=== PATIENT | male | born 1965 | race Caucasian/White ===

== ENCOUNTER → 2016-07-01 | Outpatient (CLI) | payer OTHER ==
[2015-06-11 22:52] VITALS: BP 181/90
[2016-07-01 10:56] LABS: T4 (THYROXINE) 9.1 ug/dL (4.7-13.3); TSH (3RD GENERATION) 0.905 uIU/mL (0.358-3.74)
== END ==
LOC: RT 09:59
PROVIDERS: ATTEND Psychiatry & Neurology Neurology
DX: R41.3 Other amnesia (principal)
CPT/HCPCS: 36415; 82607; 82746; 84436; 84443; 84480; 95819

== ENCOUNTER → 2016-08-04 | Outpatient (CLI) | payer OTHER ==
[2015-06-11 22:52] VITALS: BP 181/90
--- NOTE | 2016-08-04 14:45 | VAS ---
HISTORY: Bilateral leg pain and swelling. Study: Bilateral lower extremity venous Doppler Comparison: None. TECHNIQUE: Real-time dynamic grayscale, color flow and complete spectral Doppler ultrasound examina tion of the major deep venous structures were obtained of both lower extremities. FINDINGS: Right lower extremity: Real-time examination shows no evidence of thrombus within the common femora l, superficial femoral, or popliteal veins. There is normal compressibility throughout. Color flow i maging shows normal venous blood flow within the major vessels. Doppler examination shows normal vilma ous waveforms with appropriate respiratory variation and augmentation. Left lower extremity: Real-time examination shows no evidence of thrombus within the common femoral, superficial femoral, or popliteal veins. There is normal compressibility throughout. Color flow zoraida ging shows normal venous blood flow within the major vessels. Doppler examination shows normal venou s waveforms with appropriate respiratory variation and augmentation. IMPRESSION: 1. Normal bilateral lower extremity venous Doppler, without evidence of DVT. Reported By:
== END ==
LOC: RAD 13:38
PROVIDERS: ATTEND Nurse Practitioner Family
DX: M79.604 Pain in right leg (principal); M79.605 Pain in left leg; R60.1 Generalized edema
CPT/HCPCS: 93970

== ENCOUNTER → 2016-08-13 | Outpatient (CLI) | payer OTHER ==
[2015-06-11 22:52] VITALS: BP 181/90
[2016-08-13 11:29] LABS: CREATININE 1.08 mg/dL (0.70-1.30)
--- NOTE | 2016-08-13 13:51 | MRI ---
STUDY: MRI OF THE BRAIN WITHOUT AND WITH GADOLINIUM History: Short-term memory loss. Comparison: Brain MRI dated November 07, 2015. Technique: Multiplanar multi-sequence MRI of the brain was obtained utilizing standard departmental protocol. Sagittal and axial T1, axial T2, FLAIR, diffusion (DWI/ADC) images through the brain were performed. 20 cc of Omniscan was administered without reported complication following acquisition of informed w ritten consent. Post gadolinium axial and coronal whole brain images were performed. Findings: Pre gadolinium brain: The sulci, cisterns, and ventricles are age appropriate. There is no evidence of acute territorial infarction, hemorrhage, mass, mass effect or midline shift. There are no abnorm al intra-axial or extra-axial fluid collections. The major intracranial vascular flow voids are inta ct. The previously noted focus of decreased diffusion and T2 hyperintensity in the left posterior te mporal cortex is no longer visualized on the current exam. Post gadolinium brain: Following the uneventful administration of intravenous gadolinium, there is n o evidence of abnormal brain parenchymal or leptomeningeal enhancement. IMPRESSION: 1. No evidence of acute intracranial abnormality. 2. Interval resolution of previously noted focus of restricted diffusion and T2 hyperintensity in th e posterior left temporal lobe. Reported By:
== END ==
LOC: RAD 11:00
PROVIDERS: ATTEND Psychiatry & Neurology Neurology
DX: R41.3 Other amnesia (principal)
CPT/HCPCS: 36415; 70553; 82565; 84520

== ENCOUNTER → 2016-10-22 | Outpatient (CLI) | payer OTHER ==
[2015-06-11 22:52] VITALS: BP 181/90
--- NOTE | 2016-10-22 14:56 | MRI ---
MRI lumbar spine without contrast Indication: Lower back pain Technique: Multisequence, multiplanar MR images of the lumbar spine were obtained without IV contrast . Comparison: None Findings: Marrow signal and vertebral body heights/alignment are normal. No acute fracture or suspici ous osseous lesion is identified. The conus is normal in signal, terminating at L1. The cauda equina is unremarkable. Visualized paraspinal soft tissues demonstrate no gross, unexpected findings. T11-T12: Mild disc desiccation/narrowed and left paracentral disc bulge results and moderate left lat eral recess narrowing and left foraminal stenosis, only partially visualized. T12-L1, L1-L2: Unremarkable L2-L3: Mild broad-based disk bulge, otherwise unremarkable. L3-L4: Mild broad-based disk bulge and ligamentum hypertrophy results in mild right greater than left foraminal narrowing without significant canal stenosis. L4-L5: Moderate broad-based disc bulge with superimposed central disc protrusion and facet arthropath y results in mild bilateral foraminal as well as lateral recess narrowing, greater on the right. No s ignificant canal stenosis. L5-S1: Moderate broad-based disc bulge with superimposed right paracentral disc protrusion and facet arthropathy results and moderate right lateral recess and mild canal stenosis. Impression: Mild-moderate multilevel degenerative changes of the lower lumbar spine, most significant at L4-L5 an d L5-S1 as detailed above. Reported By:
== END | disposition home or self-care (01) | DRG 552 ==
LOC: RAD 09:53
PROVIDERS: ATTEND Internal Medicine
DX: M54.5 Low back pain (principal); M51.36 Other intervertebral disc degeneration, lumbar region; G62.89 Other specified polyneuropathies
CPT/HCPCS: 72148

== ENCOUNTER 2016-11-18 16:24 | Emergency (ER) | payer OTHER ==
[2016-11-18 16:38] VITALS: BP 173/88; BMI 38.5
[2016-11-18] MEDS ORDERED: VALIUM INJ IM ONE (17:25)
--- NOTE | 2016-11-18 17:25 | DR.GENAD ---
HPI - PCP Primary Care Physician: Silvia Edwards - Complaint/Symptoms Chief Complaint Doctors Comments: Patient has an appointment to see the neurologist in [place] later on this week for his chronic pain syndrome. Chief Complaint:: "hurting all over nerve pain in legs and arms and hands" - Source History Provided: Patient - Mode of Arrival Mode of Arrival: Ambulatory - Timing Onset of Chief Complaint: 11/18/16 PMH - PMH Past Medical History: Yes Past Medical History: Diabetes, Hypertension Past Medical History Comment: nerve pain, stroke Past Surgical History: Yes Surgical History: Abdominal Surgery Past Surgical History Comment: ankle, tripple bypass - Family History History of Family Medical Conditions: Yes Family Medical History: Diabetes Mellitus, Cancer - Social History Does patient currently use any type of tobacco product: No Have you used tobacco products in the last 12 months: No Type of Tobacco Use: None Does any household member use tobacco: No Alcohol Use: None Do you use any recreational Drugs:: No Lives With: Family Lives Where: Home - infectious screening In the last 2 months have you had wt loss of >10#?: NO Have you had fever, night sweats or hemotysis?: No Have you traveled outside the country in the last 6 months?: No Isolation: Standard ROS - Review of Systems Eyes: No Symptoms Reported ENTM: No Symptoms Reported, Hearing Loss Cardiovascular: No Symptoms Reported Gastrointestinal/Abdominal: No Symptoms Reported Genitourinary: No Symptoms Reported Neurological: No Symptoms Reported Musculoskeletal: No Symptoms Reported Integumentary: No Symptoms Reported Hematologic/Lymphatic: No Symptoms Reported Endocrine: No Symptoms Reported Psychiatric: No Symptoms Reported All Other Systems: Reviewed and Negative PE - Vital Signs Vitals: Temperature 97.9 F Pulse Rate 90 Respiratory Rate 18 Blood Pressure [Right Arm] 181/90 Blood Pressure 173/88 O2 Sat by Pulse Oximetry 99 - General General Appearance: Alert, Appears Intoxicated - Head Head Exam: Normal Inspection, Atraumatic - Eyes Eye exam: Normal Appearance, PERRL, EOMI - ENT ENT Exam: Normal Exam External Ear Exam: Normal External Inspection TM/Canal Exam: Bilateral Normal Nose Exam: Sinus Tenderness Mouth Exam: Normal Inspection Throat Exam: Normal Inspection - Neck Neck Exam: Normal Inspection, Full ROM - Chest Chest Inspection: Normal Inspection - Respiratory Respiratory Exam: Normal Lung Sounds Bilat Respiratory Exam: Bilateral Clear to Auscultation - Cardiovascular Cardiovascular Exam: Regular Rate, Normal Rhythm - Abdominal Exam Abdominal Exam: Normal Inspection Abdominal Tenderness: negative: RUQ, RLQ, LUQ, LLQ, Epigastrium, Suprapubic, Diffuse, Mild, Moderate, Severe, Other - Extremities Extremities Exam: Normal Inspection, Full ROM, Tenderness - Back Back Exam: Full ROM - Neurologic Neurological Exam: Alert, Oriented X3, CN II-XII Intact - Psychiatric Psychiatric Exam: Normal Affect, Normal Mood - Skin Skin Exam: Warm, Dry, Intact Course - Treatment Treatment: Diazepam 10mg IM--improved - Diagnosis Discharge Problem: Muscle spasms of lower extremity Qualifiers: Laterality: bilateral Qualified Code(s): M62.838 - Other muscle spasm - Discharge Plan Condition: Stable - Follow ups/Referrals Follow ups/Referrals: NFD,None [Primary Care Provider] - 3 days - Instructions
[2016-11-18] MEDS ORDERED: VALIUM INJ ONE (17:29)
== END 2016-11-18 18:22 | disposition home or self-care (01) ==
LOC: ER 16:40
DX: M62.838 Other muscle spasm (principal)
CPT/HCPCS: 96372; 99282; J3360

== ENCOUNTER 2020-09-28 20:09 | Observation (INO) ==
--- NOTE | 2020-09-28 20:31 | CT ---
EXAM: HEAD CT WITHOUT INTRAVENOUS CONTRASTHISTORY: Dizziness.TECHNIQUE: Spiral axial CT images are obtained through the brain without the administration of intravenous contrast. Additional sagittal and coronal reformatted images are reconstructed.DOSIMETRY: Total DLP 1256.3 mGycm; CTDI 67.4 mGyCOMPARISON: None available.FINDINGS:The centrum semiovale, basal ganglia, cerebellum, and brainstem are grossly unremarkable for a noncontrast CT scan. Atherosclerosis of the carotid siphons is seen. Consider follow-up MRA as clinically warranted.There is no acute intracranial hemorrhage, discernible acute infarction, mass lesion, midline shift, or hydrocephalus seen. No extra-axial mass or abnormal fluid collection is seen.The calvarium is intact. The partially imaged paranasal sinuses, middle ear cavities, and mastoid air cells are clear.IMPRESSION:1. No intracranial hemorrhage, discernible acute infarction, mass lesions, midline shift, mass effect or hydrocephalus seen.2. Atherosclerosis of the carotid siphons is seen.3. Consider followup evaluation with MRI /MRA imaging for further assessment as clinically warranted.Electronically signed by: Bobby Burnett (Sep 28, 2020 20:30:08)
[2020-09-28 20:44] VITALS: BMI 42.3
--- NOTE | 2020-09-28 20:59 | DR.DIZZY ---
HPI Time seen Time Seen by Provider: 09/28/20 20:55 PCP Primary Care Physician: ASHOK NANCE HPI Comment HPI Comment: Patient presents with complaint of heachache, vision change, dizziness. Notes that he has had a CVA in the past. Notes that he cannot provide accurate details due to his memory challenges today. Denies any extremity weakness. Complaint Chief Complaint:: PT TO ED VIA POV. IN ED VIA WHEELCHAIR WITH C/O MAY BE HAVING A STROKE. PER PT WOKE UP AROUND 10-11 THIS AM WITH DIFFICULTY SPEAKING. STATES HE FINALLY GOT OUT OF BED AROUND 12 AND TOOK A SHOWER. PT C/O SEVER DIZZINESS AND UNABLE TO EXPRESS HIMSELF VERBALLY. 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 COVID-19 Coronavirus risk:travel/contact w/high risk person: No Has patient experienced Coronavirus symptoms: No Source History Provided: Patient and Family Member Mode of Arrival Mode of Arrival: Wheelchair Timing Onset of Chief Complaint: 09/28/20 Context Stroke Symptoms: Acute confusion and Slurring PMH PMH Past Medical History: Yes Past Medical History: Arthritis, Coronary Artery Disease, CVA, Diabetes, Hypertension and [place] Past Medical History Comment: NEUROPATHY Past Surgical History: Yes Surgical History: Abdominal Surgery, Angioplasty/Stents, CABG/Valve Surgery and Other Family History History of Family Medical Conditions: Yes Family Medical History: Diabetes Mellitus, Cancer, [place], Coronary Artery Disease and Hypertension Social History Does patient currently use any type of tobacco product: No Have you used tobacco products in the last 12 months: No Type of Tobacco Use: None Does any household member use tobacco: No Alcohol Use: None Do you use any recreational Drugs:: No Lives With: Spouse Lives Where: Home Travel Risk Coronavirus risk:travel/contact w/high risk person: No Has patient experienced Coronavirus symptoms: No Infectious screening In the last 2 months have you had wt loss of >10#?: NO Have you had fever, night sweats or hemotysis?: No Have you traveled outside the country in the last 6 months?: No Isolation: Standard ROS Review of Systems Constitutional: See HPI Neurological: See HPI, Headache and Speech Problem All Other Systems: Reviewed and Negative PE Vital Signs Vitals: Temperature 97.5 F Pulse Rate 82 Respiratory Rate 35 Blood Pressure [Right Arm] 181/90 Blood Pressure 189/88 O2 Sat by Pulse Oximetry 99 General Limitations: No Limitations General Appearance: Alert and In No Apparent Distress Head Head Exam: Normal Inspection, Atraumatic and Normocephalic Eyes Eye exam: Other (hyphema of the right eye) ENT ENT Exam: Normal Exam and Normal Oropharynx Neck Neck Exam: Normal Inspection and Trachea Midline Chest Chest Inspection: Normal Inspection and Symmetric Chest Wall Rise Respiratory Respiratory Exam: Normal Lung Sounds Bilat Respiratory Exam: Bilateral: Clear to Auscultation Cardiovascular Cardiovascular Exam: Regular Rate, Normal Rhythm and Normal Heart Sounds Abdominal Exam Abdominal Exam: Normal Inspection, Normal Bowel Sounds and Soft Neurologic Neurological Exam: Alert and Oriented X3 Speech: Expressive Aphasia Psychiatric Psychiatric Exam: Normal Affect and Normal Mood Skin Skin Exam: Warm, Dry and Intact COURSE Reevaluation 1st: Resolved Consultation Consultation Comments: Spoke with Dr. Castellano who accepts patient for admission. [facility]OR Labs Reviewed Laboratory Results Reviewed?: Yes Result Diagrams: 09/28/20 21:08 09/28/20 21:08 Laboratory: WBC 9.5 X10^3/uL (3.6-10.0) 09/28/20 21:08 RBC 4.90 X10^6/uL (4.7-6.0) 09/28/20 21:08 Hgb 13.6 g/dL (13.5-18.0) 09/28/20 21:08 Hct 41.1 % (42.0-54.0) L 09/28/20 21:08 MCV 83.7 fL (80.0-100.0) 09/28/20 21:08 MCH 27.7 pg (27.0-34.0) 09/28/20 21:08 MCHC 33.0 g/dL (33.0-35.0) 09/28/20 21:08 RDW 13.7 % (11.6-16.5) 09/28/20 21:08 Plt Count 271 X10^3/uL (150.0-450.0) 09/28/20 21:08 MPV 8.3 fL (7.4-11.0) 09/28/20 21:08 Neut % (Auto) 77.2 % (42.0-75.0) H 09/28/20 21:08 Lymph % (Auto) 11.7 % (21.0-51.0) L 09/28/20 21:08 Henry % (Auto) 6.7 % (0.0-13.0) 09/28/20 21:08 Eos % (Auto) 2.0 % (0.9-2.9) 09/28/20 21:08 Baso % (Auto) 2.4 % (0.2-1.0) H 09/28/20 21:08 Neut # (Auto) 7.3 x10^3/uL (2.2-4.8) H 09/28/20 21:08 Lymph # (Auto) 1.1 X10^3/uL (1.3-2.9) L 09/28/20 21:08 Henry # (Auto) 0.6 x10^3/uL (0.3-0.8) 09/28/20 21:08 Eos # (Auto) 0.2 x10^3/uL (0.0-0.2) 09/28/20 21:08 Baso # (Auto) 0.2 X10^3/uL (0.0-0.1) H 09/28/20 21:08 Absolute Nucleated RBC 0.0 /100WBC 09/28/20 21:08 Sodium 142 mmol/L (136-145) 09/28/20 21:08 Corrected Sodium 143 mmol/L (136-145) 09/28/20 21:08 Potassium 5.8 mmol/L (3.5-5.1) H 09/28/20 21:08 Chloride 104 mmol/L (98-107) 09/28/20 21:08 Carbon Dioxide 28.5 mmol/L (21-32) 09/28/20 21:08 BUN 29 mg/dL (7-18) H 09/28/20 21:08 Creatinine 1.59 mg/dL (0.70-1.30) H 09/28/20 21:08 Est GFR (MDRD) Af Amer 58 (>60) L 09/28/20 21:08 Est GFR (MDRD) Non-Af 48 (>60) L 09/28/20 21:08 Glucose 145 mg/dL (65-99) H 09/28/20 21:08 Calcium 9.4 mg/dL (8.5-10.1) 09/28/20 21:08 Corrected Calcium TNP 09/28/20 21:08 Total Bilirubin 0.40 mg/dL (0.2-1.0) 09/28/20 21:08 AST 17 Units/L (15-37) 09/28/20 21:08 ALT 17 Units/L (12-78) 09/28/20 21:08 Alkaline Phosphatase 85 Units/L (46-116) 09/28/20 21:08 Creatine Kinase 119 Units/L (39-308) 09/28/20 21:08 CK-MB (CK-2) 2.8 ng/mL (0-4.0) 09/28/20 21:08 CK/CKMB % Calc 2.4 % (<4) 09/28/20 21:08 Troponin I < 0.02 ng/mL (0-1.5) 09/28/20 21:08 Total Protein 8.2 g/dL (6.4-8.2) 09/28/20 21:08 Albumin 3.9 g/dL (3.4-5.0) 09/28/20 21:08 Globulin 4.3 g/dL (2.5-4.5) 09/28/20 21:08 Albumin/Globulin Ratio 0.9 Ratio (1.1-2.1) L 09/28/20 21:08 Specimen Type Clean catch urine 09/28/20 23:40 Urine Color Yellow (YELLOW) 09/28/20 23:40 Urine Appearance Clear (CLEAR) 09/28/20 23:40 Urine pH 5.0 (5.0 - 8.0) 09/28/20 23:40 Ur Specific [place] 1.020 (1.000-1.030) 09/28/20 23:40 Urine Protein 2+ (NEGATIVE) 09/28/20 23:40 Urine Glucose (UA) Negative (NEGATIVE) 09/28/20 23:40 Urine Ketones Negative (NEGATIVE) 09/28/20 23:40 Urine Occult Blood 1+ (NEGATIVE) 09/28/20 23:40 Urine Nitrite Negative (NEGATIVE) 09/28/20 23:40 Urine Bilirubin Negative (NEGATIVE) 09/28/20 23:40 Urine Urobilinogen Normal (NORMAL) 09/28/20 23:40 Ur Leukocyte Esterase Negative (NEGATIVE) 09/28/20 23:40 Urine RBC None seen /HPF (0-3) 09/28/20 23:40 Urine WBC None seen /HPF (0-5) 09/28/20 23:40 Ur Squamous Epith Cells Rare /HPF (NEGATIVE) 09/28/20 23:40 Urine Bacteria Negative /HPF (NEGATIVE) 09/28/20 23:40 Ur Culture Indicated? No/not indicated 09/28/20 23:40 SARS-CoV-2 (PCR) Negative (NEGATIVE) 09/28/20 23:29 Influenza Type A (PCR) Negative (NEGATIVE) 09/28/20 23:29 Influenza Type B (PCR) Negative (NEGATIVE) 09/28/20 23:29 RSV (PCR) Negative (NEGATIVE) 09/28/20 23:29 XRAY X-ray Results: EXAM: HEAD CT WITHOUT INTRAVENOUS CONTRAST HISTORY: Dizziness. TECHNIQUE: Spiral axial CT images are obtained through the brain without the administration of intravenous contrast. Additional sagittal and coronal reformatted images are reconstructed. DOSIMETRY: Total DLP 1256.3 mGycm; CTDI 67.4 mGy COMPARISON: None available. FINDINGS: The centrum semiovale, basal ganglia, cerebellum, and brainstem are grossly unremarkable for a noncontrast CT scan. Atherosclerosis of the carotid siphons is seen. Consider follow-up MRA as clinically warranted. There is no acute intracranial hemorrhage, discernible acute infarction, mass lesion, midline shift, or hydrocephalus seen. No extra-axial mass or abnormal fluid collection is seen. The calvarium is intact. The partially imaged paranasal sinuses, middle ear cavities, and mastoid air cells are clear. IMPRESSION: 1. No intracranial hemorrhage, discernible acute infarction, mass lesions, midline shift, mass effect or hydrocephalus seen. 2. Atherosclerosis of the carotid siphons is seen. 3. Consider followup evaluation with MRI /MRA imaging for further assessment as clinically warranted. Electronically signed by: Bobby Burnett (Sep 28, 2020 20:30:08) Opioid Opioid Risk Tool Age (Reji box if 16-45): No History of Preadolescent Sexual Abuse: No Total: 0 Total Score Risk Category: Low Risk Copyright: Trino CINTRON predicting aberrant behaviors Diagnosis Discharge Problem: Brain TIA
[2020-09-28 21:18] LABS: BASOPHILS # (AUTO) 0.2 X10^3/uL (0.0-0.1); BASOPHILS % (AUTO) 2.4 % (0.2-1.0); EOSINOPHILS # (AUTO) 0.2 x10^3/uL (0.0-0.2); HEMATOCRIT 41.1 % (42.0-54.0); HEMOGLOBIN 13.6 g/dL (13.5-18.0); LYMPHOCYTES # (AUTO) 1.1 X10^3/uL (1.3-2.9); LYMPHOCYTES % (AUTO) 11.7 % (21.0-51.0); MEAN CORPUSCULAR HEMOGLOBIN 27.7 pg (27.0-34.0); MEAN CORPUSCULAR VOLUME 83.7 fL (80.0-100.0); MEAN PLATELET VOLUME 8.3 fL (7.4-11.0); MONOCYTES # (AUTO) 0.6 x10^3/uL (0.3-0.8); MONOCYTES % (AUTO) 6.7 % (0.0-13.0); NEUTROPHILS # (AUTO) 7.3 x10^3/uL (2.2-4.8); NEUTROPHILS % (AUTO) 77.2 % (42.0-75.0); PLATELET COUNT 271 X10^3/uL (150.0-450.0); RED CELL DISTRIBUTION WIDTH 13.7 % (11.6-16.5); WHITE BLOOD COUNT 9.5 X10^3/uL (3.6-10.0)
[2020-09-28 21:39] LABS: ALANINE AMINOTRANSFERASE 17 Units/L (12-78); ALBUMIN 3.9 g/dL (3.4-5.0); ALKALINE PHOSPHATASE 85 Units/L (46-116); ASPARTATE AMINO TRANSFERASE 17 Units/L (15-37); BLOOD UREA NITROGEN 29 mg/dL (7-18); CALCIUM 9.4 mg/dL (8.5-10.1); CARBON DIOXIDE 28.5 mmol/L (21-32); CHLORIDE 104 mmol/L (98-107); CKMB % 2.4 % (<4); COR NA(FOR HYPERGLY) 143 mmol/L (136-145); CREATINE KINASE 119 Units/L (39-308); CREATINE KINASE MB 2.8 ng/mL (0-4.0); CREATININE 1.59 mg/dL (0.70-1.30); SODIUM 142 mmol/L (136-145); TOTAL PROTEIN 8.2 g/dL (6.4-8.2); TROPONIN I < 0.02 ng/mL (0-1.5); eGFR NON BLACK RACES 48 (>60)
--- NOTE | 2020-09-28 22:43 | RAD ---
STUDY: FRONTAL VIEW CHESTCOMPARISON: NoneHISTORY: PT C/O SEVER DIZZINESS AND UNABLE TO EXPRESS HIMSELF VERBALLY. STATED PT STARTED HAVING PERFUSE SWEATING, BLURRED VISION AND SEVERE HEADACHE APPROX 1 HR PTAFINDINGS:[Status post midline sternotomy]No focal consolidation is seen.The heart size is enlargedThe mediastinum is unremarkable.There is no evidence of pleural effusion or gross pneumothorax.The trachea is midline.IMPRESSION:1. No focal consolidation is seen.Electronically signed by: Swapnil Shetty (Sep 28, 2020 22:41:18)
[2020-09-28 23:47] LABS: BILIRUBIN,URINE NEGATIVE (NEGATIVE); BLOOD/HEMOGLOBIN,URINE 1+ (NEGATIVE); GLUCOSE, URINE NEGATIVE (NEGATIVE); KETONES,URINE NEGATIVE (NEGATIVE); LEUKOCYTE ESTERASE ,URINE NEGATIVE (NEGATIVE); NITRITES,URINE NEGATIVE (NEGATIVE); PROTEIN,URINE 2+ (NEGATIVE); UROBILINOGEN,URINE NORMAL (NORMAL)
[2020-09-29 00:16] LABS: APPEARANCE,URINE CLEAR (CLEAR); BACTERIA,URINE NEGATIVE /HPF (NEGATIVE); COLOR,URINE YELLOW (YELLOW); RBC,URINE NONE SEEN /HPF (0-3); SQUAMOUS EPITHELIAL CELL,UR RARE /HPF (NEGATIVE)
[2020-09-29 01:46] LABS: CKMB % 2.1 % (<4); CREATINE KINASE 104 Units/L (39-308); CREATINE KINASE MB 2.2 ng/mL (0-4.0); TROPONIN I < 0.02 ng/mL (0-1.5)
[2020-09-29] MEDS ORDERED: INSULIN ASPART PRN (01:47)
[2020-09-29] MEDS ORDERED: LASIX PO SCH (02:00)
[2020-09-29] MEDS ORDERED: PERCOCET TAB 5/325 MG PO PRN (02:00)
[2020-09-29] MEDS ORDERED: LIORESAL ONE (02:06)
[2020-09-29] MEDS ORDERED: LASIX ONE (02:07)
[2020-09-29] MEDS ORDERED: PERCOCET TAB 5/325 MG ONE (02:07)
[2020-09-29] MEDS: LIORESAL PO SCH ×2 (02:09→06:28)
[2020-09-29 07:03] LABS: BASOPHILS # (AUTO) 0.1 X10^3/uL (0.0-0.1); BASOPHILS % (AUTO) 0.9 % (0.2-1.0); EOSINOPHILS # (AUTO) 0.2 x10^3/uL (0.0-0.2); EOSINOPHILS % (AUTO) 2.5 % (0.9-2.9); HEMATOCRIT 37.8 % (42.0-54.0); HEMOGLOBIN 12.5 g/dL (13.5-18.0); LYMPHOCYTES # (AUTO) 2.5 X10^3/uL (1.3-2.9); LYMPHOCYTES % (AUTO) 30.1 % (21.0-51.0); MEAN CORPUSCULAR HEMOGLOBIN 27.4 pg (27.0-34.0); MEAN CORPUSCULAR HGB CONC 33.1 g/dL (33.0-35.0); MEAN PLATELET VOLUME 8.4 fL (7.4-11.0); MONOCYTES # (AUTO) 0.7 x10^3/uL (0.3-0.8); MONOCYTES % (AUTO) 8.7 % (0.0-13.0); NEUTROPHILS # (AUTO) 4.7 x10^3/uL (2.2-4.8); NEUTROPHILS % (AUTO) 57.8 % (42.0-75.0); PLATELET COUNT 240 X10^3/uL (150.0-450.0); RED BLOOD COUNT 4.55 X10^6/uL (4.7-6.0); WHITE BLOOD COUNT 8.2 X10^3/uL (3.6-10.0)
[2020-09-29 07:44] LABS: ALANINE AMINOTRANSFERASE 19 Units/L (12-78); ALBUMIN 3.6 g/dL (3.4-5.0); ALKALINE PHOSPHATASE 71 Units/L (46-116); ASPARTATE AMINO TRANSFERASE 17 Units/L (15-37); BLOOD UREA NITROGEN 28 mg/dL (7-18); CALCIUM 9.1 mg/dL (8.5-10.1); CARBON DIOXIDE 29.7 mmol/L (21-32); CHLORIDE 104 mmol/L (98-107); CKMB % 1.8 % (<4); COR NA(FOR HYPERGLY) 144 mmol/L (136-145); CREATINE KINASE 111 Units/L (39-308); CREATININE 1.39 mg/dL (0.70-1.30); SODIUM 142 mmol/L (136-145); TOTAL PROTEIN 7.6 g/dL (6.4-8.2); TROPONIN I < 0.02 ng/mL (0-1.5); eGFR NON BLACK RACES 56 (>60)
[2020-09-29] MEDS ORDERED: GLUCOPHAGE ONE (08:44)
[2020-09-29] MEDS ORDERED: PLAVIX PO SCH (09:00)
[2020-09-29] MEDS ORDERED: CYMBALTA PO SCH (09:00)
[2020-09-29] MEDS ORDERED: GLUCOPHAGE PO SCH (09:00)
[2020-09-29] MEDS ORDERED: NEURONTIN CAP 300 MG PO SCH (09:00)
[2020-09-29] MEDS ORDERED: LIPITOR TAB 40 MG PO SCH (09:00)
[2020-09-29] MEDS ORDERED: ASPIRIN PO SCH (09:00)
[2020-09-29] MEDS ORDERED: [UNRECOGNIZED DRUG - OTHER] SUBCUT SCH (09:00)
[2020-09-29] MEDS ORDERED: LOPRESSOR TAB 50 MG PO SCH (09:00)
[2020-09-29] MEDS ORDERED: HumaLOG SC PRN (09:00)
[2020-09-29] MEDS ORDERED: COZAAR PO SCH (09:00)
[2020-09-29] MEDS ORDERED: FOLIC ACID TAB 1 MG PO SCH (09:00)
--- NOTE | 2020-09-29 11:25 | DR.SSS ---
SHORT STAY SUMMARY Admission Date Date of Admission: 09/28/20 Discharge Date Discharge Date: 09/29/20 Admission Diagnoses Admission Diagnoses: TIA Hypertensive urgency Discharge Diagnoses Discharge Diagnoses: Hypertensive urgency WILLY Chief Complaint Chief Complaint: dizziness, headache, slurred speech History of Present Illness History of Present Illness: Mr Calderón is a 55y/o male with a PMH of CABG, HTN, HLD, Hx of CVA, Type 2 DM and arthritis presented with dizziness, slurred speech, blurred vision and headache. His Sx started yesterday morning and progressed and was brought to the ED. He also reports generalized weakness and nausea. He denied any focal weakness to any extremity. Patient reports having uncontrolled BP and not checking it daily. He also did not take his BP medications yesterday morning as he woke up late. Patient reports feeling dizzy for the past few days. He was recently started on Duloxetine and dose was increased to 30 mg BID in the beginning of the week. Patient states that made him really dizzy so he stopped taking it on . In the ED, SBP was noted to be in 180-190s. CT-head was negative. He was admitted for possible TIA. Past Medical History Past Medical History: Arthritis, Coronary Artery Disease, CVA, Diabetes, Hypertension and CT Past Surgical History Surgical History: CABG/Valve Surgery, Ortho Surgery and Weight Loss Surgery Allergies Allergies Allergy/AdvReac Type Severity Reaction Status Date / Time No Known Drug Allergies Allergy Verified 03/10/17 13:09 Medications Home Medications: No Known Drug Allergies Allergy (Verified 03/10/17 13:09) CONTINUE taking the following medications aspirin 325 mg PO DAILY 09/28/20 [History] atorvastatin 40 mg PO DAILY 09/28/20 [History] baclofen 20 mg PO TID 09/28/20 [History] celecoxib 200 mg PO DAILY 09/28/20 [History] clopidogrel 75 mg PO DAILY 09/28/20 [History] duloxetine 30 mg PO BID 09/28/20 [History] folic acid 1 mg PO DAILY 09/28/20 [History] furosemide 20 mg PO Q OTHER DAY 09/28/20 [History] gabapentin 300 mg PO DAILY PRN 09/28/20 [History] gabapentin 600 mg PO BID 09/28/20 [History] insulin aspart U-100 See Rx Instructions .ROUTE .COMPLEX PRN 09/28/20 [History] insulin degludec-liraglutide [Xultophy 100/3.6] 40 unit SUBCUT DAILY 09/28/20 [History] losartan 100 mg PO DAILY 09/28/20 [History] metoprolol tartrate 25 mg PO BID 09/28/20 [History] ondansetron HCl 4 mg PO PRN PRN 09/28/20 [History] oxycodone-acetaminophen 1 tab PO BID PRN 09/28/20 [History] potassium chloride 10 meq PO DAILY 09/28/20 [History] vitamin E 1 cap PO DAILY 09/28/20 [History] New Prescriptions amlodipine 5 mg PO DAILY #30 tab 09/29/20 [Rx] Family History Family Medical History: Diabetes Mellitus, Cancer, Coronary Artery Disease, Heart Failure and Hypertension Social History Does patient currently use any type of tobacco product: No Have you used tobacco products in the last 12 months: No Type of Tobacco Use: None Does any household member use tobacco: No Alcohol Use: None Drug Use: None Review of Systems Constitutional: Weakness Eyes: No Symptoms Reported ENT: No Symptoms Reported Respiratory: No Symptoms Reported Cardiovascular: No Symptoms Reported Gastrointestinal: Nausea Genitourinary: No Symptoms Reported Musculoskeletal: Back Pain Skin: No Symptoms Reported Neurological: Weakness and Change in Speech Physical Exam Vital Signs: Last Vital Signs Temp 98.6 F 09/29/20 08:00 Pulse 87 09/29/20 08:00 Resp 16 09/29/20 08:00 BP 159/75 09/29/20 08:00 Pulse Ox 96 09/29/20 08:00 Oriented: Normal Eyes: Normal Ear: Normal Nose: Normal Throat: Normal Respiratory: Clear Throughout Cardiovascular: Normal Auscultation: Bowel Sounds: Normal Palpation: Normal Tenderness: Normal Skin: Normal Musculoskeletal: Normal Psychiatric: Normal Mood Description: Calm Affect: Normal Speech Pattern: Clear and Appropriate Labs Labs: Laboratory Last Values WBC 8.2 X10^3/uL (3.6-10.0) 09/29/20 06:32 RBC 4.55 X10^6/uL (4.7-6.0) L 09/29/20 06:32 Hgb 12.5 g/dL (13.5-18.0) L 09/29/20 06:32 Hct 37.8 % (42.0-54.0) L 09/29/20 06:32 MCV 83.0 fL (80.0-100.0) 09/29/20 06:32 MCH 27.4 pg (27.0-34.0) 09/29/20 06:32 MCHC 33.1 g/dL (33.0-35.0) 09/29/20 06:32 RDW 14.0 % (11.6-16.5) 09/29/20 06:32 Plt Count 240 X10^3/uL (150.0-450.0) 09/29/20 06:32 MPV 8.4 fL (7.4-11.0) 09/29/20 06:32 Neut % (Auto) 57.8 % (42.0-75.0) 09/29/20 06:32 Lymph % (Auto) 30.1 % (21.0-51.0) 09/29/20 06:32 [place] % (Auto) 8.7 % (0.0-13.0) 09/29/20 06:32 Eos % (Auto) 2.5 % (0.9-2.9) 09/29/20 06:32 Baso % (Auto) 0.9 % (0.2-1.0) 09/29/20 06:32 Neut # (Auto) 4.7 x10^3/uL (2.2-4.8) 09/29/20 06:32 Lymph # (Auto) 2.5 X10^3/uL (1.3-2.9) 09/29/20 06:32 [place] # (Auto) 0.7 x10^3/uL (0.3-0.8) 09/29/20 06:32 Eos # (Auto) 0.2 x10^3/uL (0.0-0.2) 09/29/20 06:32 Baso # (Auto) 0.1 X10^3/uL (0.0-0.1) 09/29/20 06:32 Absolute Nucleated RBC 0.1 /100WBC 09/29/20 06:32 Sodium 142 mmol/L (136-145) 09/29/20 06:32 Corrected Sodium 144 mmol/L (136-145) 09/29/20 06:32 Potassium 4.7 mmol/L (3.5-5.1) 09/29/20 06:32 Chloride 104 mmol/L (98-107) 09/29/20 06:32 Carbon Dioxide 29.7 mmol/L (21-32) 09/29/20 06:32 BUN 28 mg/dL (7-18) H 09/29/20 06:32 Creatinine 1.39 mg/dL (0.70-1.30) H 09/29/20 06:32 Est GFR (MDRD) Af Amer > 60 (>60) 09/29/20 06:32 Est GFR (MDRD) Non-Af 56 (>60) L 09/29/20 06:32 Glucose 173 mg/dL (65-99) H 09/29/20 06:32 POC Glucose (mg/dL) 170 mg/dL (65-99) H 09/29/20 06:02 Calcium 9.1 mg/dL (8.5-10.1) 09/29/20 06:32 Corrected Calcium TNP 09/29/20 06:32 Total Bilirubin 0.40 mg/dL (0.2-1.0) 09/29/20 06:32 AST 17 Units/L (15-37) 09/29/20 06:32 ALT 19 Units/L (12-78) 09/29/20 06:32 Alkaline Phosphatase 71 Units/L (46-116) 09/29/20 06:32 Creatine Kinase 111 Units/L (39-308) 09/29/20 06:32 CK-MB (CK-2) 2.0 ng/mL (0-4.0) 09/29/20 06:32 CK/CKMB % Calc 1.8 % (<4) 09/29/20 06:32 Troponin I < 0.02 ng/mL (0-1.5) 09/29/20 06:32 Total Protein 7.6 g/dL (6.4-8.2) 09/29/20 06:32 Albumin 3.6 g/dL (3.4-5.0) 09/29/20 06:32 Globulin 4.0 g/dL (2.5-4.5) 09/29/20 06:32 Albumin/Globulin Ratio 0.9 Ratio (1.1-2.1) L 09/29/20 06:32 Specimen Type Clean catch urine 09/28/20 23:40 Urine Color Yellow (YELLOW) 09/28/20 23:40 Urine Appearance Clear (CLEAR) 09/28/20 23:40 Urine pH 5.0 (5.0 - 8.0) 09/28/20 23:40 Ur Specific [place] 1.020 (1.000-1.030) 09/28/20 23:40 Urine Protein 2+ (NEGATIVE) 09/28/20 23:40 Urine Glucose (UA) Negative (NEGATIVE) 09/28/20 23:40 Urine Ketones Negative (NEGATIVE) 09/28/20 23:40 Urine Occult Blood 1+ (NEGATIVE) 09/28/20 23:40 Urine Nitrite Negative (NEGATIVE) 09/28/20 23:40 Urine Bilirubin Negative (NEGATIVE) 09/28/20 23:40 Urine Urobilinogen Normal (NORMAL) 09/28/20 23:40 Ur Leukocyte Esterase Negative (NEGATIVE) 09/28/20 23:40 Urine RBC None seen /HPF (0-3) 09/28/20 23:40 Urine WBC None seen /HPF (0-5) 09/28/20 23:40 Ur Squamous Epith Cells Rare /HPF (NEGATIVE) 09/28/20 23:40 Urine Bacteria Negative /HPF (NEGATIVE) 09/28/20 23:40 Ur Culture Indicated? No/not indicated 09/28/20 23:40 SARS-CoV-2 (PCR) Negative (NEGATIVE) 09/28/20 23:29 Influenza Type A (PCR) Negative (NEGATIVE) 09/28/20 23:29 Influenza Type B (PCR) Negative (NEGATIVE) 09/28/20 23:29 RSV (PCR) Negative (NEGATIVE) 09/28/20 23:29 Assessment/Plan (1) Hypertensive urgency: (2) Hx of CABG: (3) WILLY (acute kidney injury): (4) Generalized weakness: Hospital Course Hospital Course: Patient was admitted for possible TIA. He is currently alert and oriented with normal speech and strength. Patient states he feels back to his normal self. He states his Sx improved shortly after he came to the hospital. In the ED, CT-head: no acute infarct, bleeding or mass seen. CXR was negative. Patient's cardiac enzymes x 3 negative. His labs showed elevated creatinine at 1.59, UA (-). He was admitted to med-surg with telemetry. He was started on gentle hydration, Cr improved to 1.39. Patient's BP this AM was 159/75. Patient feels good with no neurological deficits. Patient's symptoms likely related to hypertensive urgency. Patient stable for discharge. He was started on amlodipine 5 mg in addition to his current home meds. He will follow up with PCP in 3 days for BP and repeat BMP. Patient was advised to come back to the ER if noticing any neurological symptoms. Patient verbalized understanding. Discharge Medications Discharge Medications: Home Medication List aspirin 325 mg PO DAILY 09/28/20 [History] atorvastatin 40 mg PO DAILY 09/28/20 [History] baclofen 20 mg PO TID 09/28/20 [History] celecoxib 200 mg PO DAILY 09/28/20 [History] clopidogrel 75 mg PO DAILY 09/28/20 [History] duloxetine 30 mg PO BID 09/28/20 [History] folic acid 1 mg PO DAILY 09/28/20 [History] furosemide 20 mg PO Q OTHER DAY 09/28/20 [History] gabapentin 300 mg PO DAILY PRN 09/28/20 [History] gabapentin 600 mg PO BID 09/28/20 [History] insulin aspart U-100 See Rx Instructions .ROUTE .COMPLEX PRN 09/28/20 [History] insulin degludec-liraglutide [Xultophy 100/3.6] 40 unit SUBCUT DAILY 09/28/20 [History] losartan 100 mg PO DAILY 09/28/20 [History] metoprolol tartrate 25 mg PO BID 09/28/20 [History] ondansetron HCl 4 mg PO PRN PRN 09/28/20 [History] oxycodone-acetaminophen 1 tab PO BID PRN 09/28/20 [History] potassium chloride 10 meq PO DAILY 09/28/20 [History] vitamin E 1 cap PO DAILY 09/28/20 [History] amlodipine 5 mg PO DAILY #30 tab 09/29/20 [Rx] Prescriptions: Gill Lopez Discharge Disposition Discharge Disposition: Stable
[2020-09-29 12:03] VITALS: BP 169/87
[2020-09-29 12:52] LABS: CKMB % 2.1 % (<4); CREATINE KINASE 128 Units/L (39-308); CREATINE KINASE MB 2.7 ng/mL (0-4.0); TROPONIN I < 0.02 ng/mL (0-1.5)
== END 2020-09-29 13:50 | disposition home or self-care (01) ==
LOC: ER 20:09 → MED/SURG 20:09
PROVIDERS: ADMIT Family Medicine; ATTEND Internal Medicine
DX: R51.9 Headache, unspecified; N17.8 Other acute kidney failure; Z20.822 Contact with and (suspected) exposure to COVID-19; R42 Dizziness and giddiness; Z95.1 Presence of aortocoronary bypass graft; R53.1 Weakness; I16.0 Hypertensive urgency